=== PATIENT | female | born 1985 | race Caucasian/White ===

== ENCOUNTER 2017-09-12 06:23 | Day surgery (SDC) | payer OTHER ==
[2017-09-12] MEDS: Lactated Ringers 1,000 ML IV SCH ×2 (07:54→09:41)
[2017-09-12] MEDS ORDERED: diphenhydrAMINE 50 MG/ML SDV IV ONE (08:00)
[2017-09-12] MEDS ORDERED: ceFAZolin 1 GM in Sodium Chloride 0.9% 50 ML IV ONE (08:00)
[2017-09-12] MEDS ORDERED: fentaNYL 100 MCG/2 ML SDV IV ONE (08:00)
[2017-09-12] MEDS ORDERED: Propofol 200 MG/20 ML SDV IV ONE (08:00)
[2017-09-12] MEDS ORDERED: Ondansetron 4 MG/2 ML SDV IVPUSH ONE (08:00)
[2017-09-12] MEDS ORDERED: Ketorolac 30 MG/ML SDV IVPUSH ONE (08:00)
[2017-09-12] MEDS ORDERED: Dexamethasone 4 MG/ML 5 ML MDV IVPUSH ONE (08:00)
[2017-09-12] MEDS ORDERED: Midazolam 1 MG/ML 2 ML SDV IV ONE (08:00)
[2017-09-12] MEDS ORDERED: Bupivacaine 0.5% 30 ML SDV INJECT ONE (08:19)
[2017-09-12] MEDS ORDERED: Lidocaine 1% with EPINEPHrine 1:100,000 20 ML MDV INJECT ONE (08:19)
--- NOTE | 2017-09-12 08:42 | PCM.OPNOTE ---
- General Post-Op/Procedure Note Date of Surgery/Procedure: 09/12/17 Operative Procedure(s): umbilical hernia repair Findings: 5 mm defect Pre Op Diagnosis: umbilical hernia Post-Op Diagnosis: Same Anesthesia Technique: General ET Tube, Local (7 ml 1% lido with epi/0.5% buvipicaine) Primary Surgeon: Luciano Davis Anesthesia Provider: Leonor Carlson Pathology: none EBL in mLs: 1 Complications: None Condition: Good Free Text/Narrative:: see dictation
--- NOTE | 2017-09-12 09:18 | OR ---
DATE OF OPERATION: 09/12/2017 SURGEON: Luciano Davis MD PROCEDURE PERFORMED: Umbilical hernia repair. PREOPERATIVE DIAGNOSIS: Umbilical hernia. POSTOPERATIVE DIAGNOSIS: Umbilical hernia. INDICATIONS FOR PROCEDURE: This is a 32-year-old white female, who was referred with a small symptomatic umbilical hernia. She was offered and accepted repair. INTRAOPERATIVE FINDINGS: As follows: A small 5 to 7 mm defect was encountered. This was repaired primarily. A total of 7 mL of a 1:1 mixture of 1% lidocaine with epinephrine, 0.5% bupivacaine was used. DESCRIPTION OF PROCEDURE: After an excellent general anesthetic was administered, the patient was prepped and draped in the usual sterile manner. A 7 mL of our local mixture was used to create a field block. Curvilinear incision was then made at the base of the umbilicus. Sharp dissection was carried out and the umbilicus was dissected free from the underlying hernia sac with a small defect. This was opened superiorly and inferiorly to allow insertion of a pinky finger to palpate the anterior abdominal wall and make sure that we were not missing any other hernias, none were palpated. The defect was then closed with interrupted 0 Ethibond and 0 Ethibond was used to tack the umbilicus to the anterior abdominal wall. Subcu 4-0 Vicryl was used to approximate the skin and Steri-Strips were applied. Needle, sponge, and instrument counts were reported as correct. The patient was taken to Recovery in good condition. /[id number] /ROSANNEL
[2017-09-12] MEDS ORDERED: Acetaminophen/HYDROcodone 325-5 MG Tab PO ONE (10:08)
== END 2017-09-12 11:20 | disposition home or self-care (01) ==
LOC: FB.SDS 06:23
PROVIDERS: ATTEND Surgery
DX: K42.9 Umbilical hernia without obstruction or gangrene (principal); F32.9 Major depressive disorder, single episode, unspecified; J45.909 Unspecified asthma, uncomplicated; Z91.09 Other allergy status, other than to drugs and biological substances; Z98.890 Other specified postprocedural states; F17.210 Nicotine dependence, cigarettes, uncomplicated; Z79.899 Other long term (current) drug therapy
CPT/HCPCS: 49585; 81025; A9270; J0690; J1100; J1200; J1885; J2250; J2405; J2704; J3010; J7050; J7120

== ENCOUNTER 2019-01-10 12:13 | Emergency (ER) | payer OTHER ==
[2019-01-10] MEDS ORDERED: Midazolam 1 MG/ML 2 ML SDV IV ONE (12:14)
[2019-01-10] MEDS ORDERED: Rocuronium 100 MG/10 ML MDV IV ONE (12:14)
[2019-01-10] MEDS ORDERED: Propofol 200 MG/20 ML SDV IV ONE (12:14)
[2019-01-10] MEDS ORDERED: Succinylcholine 200 MG/10 ML MDV IV ONE (12:14)
[2019-01-10] MEDS ORDERED: Sodium Chloride 0.9% 1,000 ML IV ONE ×2 (12:17→12:42)
--- NOTE | 2019-01-10 12:24 | EDM.PDOC ---
ED HPI GENERAL MEDICAL PROBLEM - General Stated Complaint: LATHARGIC Time Seen by Provider: 01/10/19 12:13 Source of Information: Reports: Patient, EMS History Limitations: Reports: Other (nonresponsive) - History of Present Illness INITIAL COMMENTS - FREE TEXT/NARRATIVE: 33 y.o.w.f with a H/O IVDA, Psych Issues was being lethargic at work and past out. EMS was called. As the EMS arrived, Pulse Ox was 88. SBP 88/56 Pulse 62. As per EMS, pt was lethargic, denying neck pain, or any other pain. As the Pt arrived here in the ED, her airway was open, there was no GAG reflex, pt was spont breathing O2 was 88% on RA. Onset Date: 01/10/19 Onset Time: 09:00 Duration: Hour(s):, Getting Worse Location: Reports: Face, Generalized Quality: Reports: Other (fall) Severity: Severe Improves with: Reports: None Worsens with: Reports: None Context: Reports: Other (fell at work, unresponsie) Associated Symptoms: Reports: Other (GCS 6) Treatments INSPECTOR INSULATION: Reports: IV/IO - Related Data Allergies Allergy/AdvReac Type Severity Reaction Status Date / Time metals Allergy Rash Uncoded 09/12/17 07:21 Home Meds: Home Meds Albuterol [Ventolin HFA] 1 puff INH Q4H PRN 09/11/17 [History] Cephalexin [Keflex] 500 mg PO TID 09/11/17 [History] Cholecalciferol (Vitamin D3) [Vitamin D3] 400 units PO DAILY 09/11/17 [History] Clotrimazole [Clotrimazole 1%] 1 applic TOP BID 09/11/17 [History] Gabapentin [Neurontin] 300 mg PO BID 09/11/17 [History] Gabapentin [Neurontin] 600 mg PO BEDTIME 09/11/17 [History] Ibuprofen [Advil] 200 mg PO Q4H PRN 09/11/17 [History] Glendora's Wort 300 mg PO DAILY 09/11/17 [History] Acetaminophen/HYDROcodone [[place] 325-5 MG] 1 - 2 tab PO Q6H PRN #20 tab [Rx] Ibuprofen [Motrin] 600 mg PO Q6H PRN #28 tab 09/12/17 [Rx] Past Medical History Cardiovascular History: Reports: None Respiratory History: Reports: Asthma Gastrointestinal History: Reports: None Genitourinary History: Reports: None Other WELD ENGINEER History: metrorrhagia Musculoskeletal History: Reports: None Neurological History: Reports: None Psychiatric History: Reports: Depression Hematologic History: Reports: None Immunologic History: Reports: None Oncologic (Cancer) History: Reports: None Dermatologic History: Reports: Psoriasis - Past Surgical History Head Surgeries/Procedures: Reports: None HEENT Surgical History: Reports: Tonsillectomy Social & Family History - Caffeine Use Caffeine Use: Reports: Energy Drinks ED ROS GENERAL - Review of Systems Review Of Systems: Unable To Obtain ED EXAM, NEURO - Physical Exam Exam: See Below Exam Limited By: Other (unresponsive) General Appearance: Severe Distress Eye Exam: Bilateral Eye: Other (sluggish response to light) Ears: Normal External Exam Nose: Normal Inspection Throat/Mouth: Other (Lip LAG, No GAG reflex) Head Exam: Facial Swelling, Other (mid upper lip LAC) Neck: Normal Inspection Respiratory/Chest: Decreased Breath Sounds Cardiovascular: Regular Rate, Rhythm, No JVD, No Murmur GI/Abdominal: Normal Bowel Sounds, Soft, Non-Tender, No Organomegaly, No Abnormal Bruit, No Mass, Pelvis Stable Back Exam: Normal Inspection Extremities: Normal Inspection, Normal Range of Motion Psychiatric: Other (nonresponding GCS 6) Skin Exam: Pallor, Rash (abrasion left ant knee) EKG INTERPRETATION EKG Date: 01/10/19 Time: 12:20 Rhythm: NSR Rate (Beats/Min): 70 [place]: Normal P-Wave: Present QRS: Normal ST-T: Normal QT: Normal Comparison: NA - No Prior EKG Course - Vital Signs Text/Narrative:: 33 y.o.w.f with a H/O IVDA, Psych Issues was being lethargic at work and past out. EMS was called. As the EMS arrived, Pulse Ox was 88. SBP 88/56 Pulse 62. As per EMS, pt was lethargic, denying neck pain, or any other pain. As the Pt arrived here in the ED, her airway was open, there was no GAG reflex, pt was spont breathing RR 17, O2 was 88% on RA. No wheezes\ PE: Nonresponding tp voic, pain 33 Y.O w.f with no GAG reflex, pupils sluggish , equal. As per EMS. As per EMT, Pt was moving her neck spontaneously INSPECTOR INSULATION. Imaging: CT head NAD, official report is pending. CT C spine pending. Labs: [facility] nl. BMP Na 146 K 3.4 UDS pos for Amphetamines and THC products. EKG: NSR Impression: in a com, Hypoxemia with decr. Respiration rate, NO GAG. Facial Trauma. TX: Intubation by Anesthesia: Cuffed tube 100% ventilated. NS (2 I.Vs) 12.50 pm Consultation: Dr. Stephen/Willem, [facility], [facility]: CT head, then transfer, report the Lab results as soon they are back. Pt was accepted for transfer and further care Reexam: Improved, pt was intubated, 100% ventilated, BP was 125/87 Plan: Transfer to [facility], ICU Follow up call 01/11/2019 8 am Pt is improving, planned to be extubated today Last Recorded V/S: Last Vital Signs Temp 37.0 C 01/10/19 12:35 Pulse Resp 21 H 01/10/19 12:15 BP 101/70 01/10/19 12:15 Pulse Ox 92 L 01/10/19 12:15 - Orders/Labs/Meds Orders: Active Orders 24 hr Category Date Time Status Ozuna Catheter Insertion [Insert Urinary Catheter] [OM. Care 01/10/19 12:15 Ordered PC] Q24H Urinary Catheter Assessment [RC] QSHIFT Care 01/10/19 12:15 Active Chest 1V Frontal [CR] Stat Exams 01/10/19 13:03 Taken Head wo Cont [CT] Stat Exams 01/10/19 15:16 Taken EKG 12 Lead [EK] Routine Ther 01/10/19 12:17 Ordered Labs: Laboratory Tests 01/10/19 01/10/19 01/10/19 Range/Units 12:25 12:25 12:25 WBC 6.7 (4.5-12.0) X10-3/uL RBC 4.32 (3.23-5.20) x10(6)uL Hgb 11.8 (11.5-15.5) g/dL Hct 36.1 (30.0-51.3) % MCV 83.4 (80-96) fL MCH 27.3 L (27.7-33.6) pg MCHC 32.8 (32.2-35.4) g/dL RDW 15.1 (11.5-15.5) % Plt Count 179 (125-369) X10(3)uL MPV 9.0 (7.4-10.4) fL Add Manual Diff Yes Neutrophils % (Manual) 91 H (46-82) % Lymphocytes % (Manual) 4 L (13-37) % Monocytes % (Manual) 5 (4-12) % Sodium 146 H (135-145) mmol/L Potassium 3.4 L (3.5-5.3) mmol/L Chloride 110 (100-110) mmol/L Carbon Dioxide 26 (21-32) mmol/L BUN 15 (7-18) mg/dL Creatinine 0.8 (0.55-1.02) mg/dL Est Cr Clr Drug Dosing TNP Estimated GFR (MDRD) > 60 (>60) BUN/Creatinine Ratio 18.8 (9-20) Glucose 101 (80-116) mg/dL Calcium 8.7 (8.6-10.2) mg/dL TSH, Ultra Sensitive (0.36-3.74) IU/mL Urine HCG, Qual (NEGATIVE) Salicylates < 2.0 L (2.8-20.0) mg/dL Urine Opiates Screen Negative (NEGATIVE) Ur Oxycodone Screen Negative (NEGATIVE) Ur Propoxyphene Screen Negative (NEGATIVE) Acetaminophen < 2 L (10-30) ug/mL Ur Barbituates Screen Negative (NEGATIVE) Ur Tricyclics Screen Negative (NEGATIVE) Ur Phencyclidine Scrn Negative (NEGATIVE) Ur Amphetamine Screen Positive H (NEGATIVE) Urine MDMA Screen Negative (NEGATIVE) U Benzodiazepines Scrn Negative (NEGATIVE) U Cocaine Metab Screen Negative (NEGATIVE) U Marijuana (THC) Screen Positive H (NEGATIVE) Ethyl Alcohol (<0.03) % 01/10/19 01/10/19 Range/Units 12:25 12:25 WBC (4.5-12.0) X10-3/uL RBC (3.23-5.20) x10(6)uL Hgb (11.5-15.5) g/dL Hct (30.0-51.3) % MCV (80-96) fL MCH (27.7-33.6) pg MCHC (32.2-35.4) g/dL RDW (11.5-15.5) % Plt Count (125-369) X10(3)uL MPV (7.4-10.4) fL Add Manual Diff Neutrophils % (Manual) (46-82) % Lymphocytes % (Manual) (13-37) % Monocytes % (Manual) (4-12) % Sodium (135-145) mmol/L Potassium (3.5-5.3) mmol/L Chloride (100-110) mmol/L Carbon Dioxide (21-32) mmol/L BUN (7-18) mg/dL Creatinine (0.55-1.02) mg/dL Est Cr Clr Drug Dosing Estimated GFR (MDRD) (>60) BUN/Creatinine Ratio (9-20) Glucose (80-116) mg/dL Calcium (8.6-10.2) mg/dL TSH, Ultra Sensitive 1.34 (0.36-3.74) IU/mL Urine HCG, Qual Negative (NEGATIVE) Salicylates (2.8-20.0) mg/dL Urine Opiates Screen (NEGATIVE) Ur Oxycodone Screen (NEGATIVE) Ur Propoxyphene Screen (NEGATIVE) Acetaminophen (10-30) ug/mL Ur Barbituates Screen (NEGATIVE) Ur Tricyclics Screen (NEGATIVE) Ur Phencyclidine Scrn (NEGATIVE) Ur Amphetamine Screen (NEGATIVE) Urine MDMA Screen (NEGATIVE) U Benzodiazepines Scrn (NEGATIVE) U Cocaine Metab Screen (NEGATIVE) U Marijuana (THC) Screen (NEGATIVE) Ethyl Alcohol < 0.03 (<0.03) % Meds: Medications Discontinued Medications Generic Name Dose Route Start Last Admin Trade Name Freq PRN Reason Stop Dose Admin Sodium Chloride 1,000 mls @ 999 mls/hr 01/10/19 12:17 01/10/19 12:20 Normal Saline IV 01/10/19 13:17 999 mls/hr .BOLUS ONE Administration Sodium Chloride 1,000 mls @ 999 mls/hr 01/10/19 12:42 01/10/19 12:42 Normal Saline IV 01/10/19 13:42 999 mls/hr ONETIME ONE Administration Sodium Chloride 1,000 mls @ 125 mls/hr 01/10/19 13:40 01/10/19 13:45 Normal Saline IV 125 mls/hr ASDIRECTED JEFFERY Administration Departure - Departure Time of Disposition: 14:00 Disposition: DC/Tfer to Acute Hospital 02 Condition: Critical Clinical Impression: Coma of unknown cause Drug overdose, intentional Qualifiers: Encounter type: subsequent encounter Qualified Code(s): T50.902D - Poisoning by unspecified drugs, medicaments and biological substances, intentional self- harm, subsequent encounter - Discharge Information Referrals: PCP,None [Ordering Only Provider] - Forms: ED Department Discharge - My Orders Last 24 Hours: My Active Orders 01/10/19 12:15 Ozuna Catheter Insertion [Insert Urinary Catheter] [OM.PC] Q24H Urinary Catheter Assessment [RC] QSHIFT 01/10/19 12:17 EKG 12 Lead [EK] Routine 01/10/19 13:03 Chest 1V Frontal [CR] Stat 01/10/19 15:16 Head wo Cont [CT] Stat - Assessment/Plan Last 24 Hours: My Active Orders 01/10/19 12:15 Ozuna Catheter Insertion [Insert Urinary Catheter] [OM.PC] Q24H Urinary Catheter Assessment [RC] QSHIFT 01/10/19 12:17 EKG 12 Lead [EK] Routine 01/10/19 13:03 Chest 1V Frontal [CR] Stat 01/10/19 15:16 Head wo Cont [CT] Stat
[2019-01-10 13:06] LABS: ACETAMINOPHEN < 2 ug/mL (10-30)
[2019-01-10] MEDS ORDERED: Sodium Chloride 0.9% 1,000 ML IV SCH (13:40)
--- NOTE | 2019-01-10 13:59 | PCM.SN ---
- Free Text/Narrative Note: Critical Care management note: [id number] to ER and ER DR Brian requested intubation and care for patient who is unconscious without reflexes.report is patient not responding appropriately at work and eventually passed out and fell. 1245Vital signs:B/P=118/60,HR68,[id number] to 100% Temp 98.6.Intubated,please see anesthesia record for documetation of this,including meds that were given and vital signs..placed on ventilator with instructions to ER nurse for settings. [address] for scanning,used ambu for ventilation with 8 liters per minute for O2,SAO2 remained above 95% throughout. 1310 to ER placed on ventilator,additional meds given,refer to anesthesia record. 1325vital signs stable,report given to paramedics prior to transfer.
== END 2019-01-10 13:58 ==
LOC: FB.ED 12:13
DX: R40.20 Unspecified coma (principal); R09.02 Hypoxemia; S01.511A Laceration without foreign body of lip, initial encounter; S80.212A Abrasion, left knee, initial encounter; T50.902D Poisoning by unspecified drugs, medicaments and biological substances, intentional self-harm, subsequent encounter; Z79.899 Other long term (current) drug therapy; Z91.09 Other allergy status, other than to drugs and biological substances; F32.9 Major depressive disorder, single episode, unspecified; W19.XXXA Unspecified fall, initial encounter
CPT/HCPCS: 31500; 36415; 51702; 70450; 71045; 80048; 80305; 81025; 84443; 85025; 93005; 96360; 99285; G0480; J0330; J2250; J2704; J7030